=== PATIENT | male | born 1995 | race Caucasian/White ===

== ENCOUNTER 2020-06-30 11:06 | Emergency (ER) | payer OTHER ==
[~2020-06-30] VITALS: Ht 177.8 cm; Wt 85.4 kg
[2020-06-30 11:11] VITALS: BP 160/87
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
[2020-06-30] MEDS ORDERED: KETOROLAC 30 MG/1 ML ONE (12:00)
--- NOTE | 2020-06-30 12:06 | NUR ---
PT MEDICATED PER EMAR. XR AT BEDSIDE.
[2020-06-30] MEDS ORDERED: KETOROLAC 30 MG/1 ML IM ONE (12:30)
--- NOTE | 2020-06-30 13:03 | NUR ---
Patient given discharge instructions and they have confirmed that they understand the instructions. Patient ambulatory with steady gait.
== END 2020-06-30 13:04 | disposition home or self-care (01) ==
LOC: ED 12:53
DX: S43.101A Unspecified dislocation of right acromioclavicular joint, initial encounter (principal); W22.8XXA Striking against or struck by other objects, initial encounter; Y93.89 Activity, other specified; Y92.410 Unspecified street and highway as the place of occurrence of the external cause; Y99.8 Other external cause status
CPT/HCPCS: 29105; 73030; 96372; 99283; J1885